=== PATIENT | male | born 2000 | race Caucasian/White ===

== ENCOUNTER 2024-11-25 22:20 | Observation (INO) | payer OTHER ==
[2024-11-25] MEDS ORDERED: ACETAMINOPHEN 325 MG TABLET (FP) ONE (23:12)
[2024-11-25] MEDS ORDERED: KETOROLAC TROMETHAMINE 15 MG/ML VIAL ONE (23:12)
[2024-11-25] MEDS: ACETAMINOPHEN 325 MG TABLET (FP) PO ONE (23:16)
[2024-11-25] MEDS: KETOROLAC TROMETHAMINE 15 MG/ML VIAL IM ONE (23:16)
[2024-11-26 01:04] LABS: ABSOLUTE IMMATURE GRANULOCYTES 0.06 x10^3/uL (0.0-0.031); BASOPHILS # 0.07 x10^3/uL (0.01-0.08); EOSINOPHIL % 0.1 % (0.8-7.0); EOSINOPHILS # 0.01 x10^3/uL (0.04-0.54); MCHC 34.4 g/dl (32.3-36.5); MEAN CELL VOLUME 87.1 fl (79.0-92.2); MEAN PLT VOLUME 9.8 fl (9.4-12.4); MONOCYTE # 0.58 x10^3/uL (0.30-0.82); MONOCYTE % 3.4 % (5.3-12.2); RDW 12.9 % (11.9-15.3)
[2024-11-26 01:17] LABS: ACTIVATED PTT 25.1 SECONDS (25.2-36.5)
[2024-11-26 01:18] LABS: INR 1.16 (0.83-1.09); PROTHROMBIN TIME (PATIENT) 12.8 SEC (9.7-13.0)
[2024-11-26 01:36] LABS: CO2 26.0 mmol/L (21-32); GLUCOSE,RANDOM 94.0 mg/dL (74-106)
[2024-11-26 01:39] LABS: CREATININE 1.2 mg/dL (0.55-1.3); SGOT/AST 25.0 U/L (15-37); SGPT/ALT 34.0 U/L (13-61)
[2024-11-26 01:40] LABS: TOT PROT 8.0 g/dl (6.4-8.2)
[2024-11-26 01:42] LABS: ALK PHOS 82.0 U/L (45-117)
[2024-11-26] MEDS ORDERED: DIPHTH,PERTUSS(ACELL),TET 0.5 ML DISP.SYRIN IM ONE (02:16)
[2024-11-26] MEDS: DIPHTH,PERTUSS(ACELL),TET 0.5 ML DISP.SYRIN IM ONE (02:20)
[2024-11-26] MEDS ORDERED: ACETAMINOPHEN 325 MG TABLET (FP) PO PRN (03:06)
[2024-11-26] MEDS ORDERED: KETOROLAC TROMETHAMINE 15 MG/ML VIAL ONE (07:25)
[2024-11-26] MEDS: KETOROLAC TROMETHAMINE 15 MG/ML VIAL IVPUSH PRN (07:29)
[2024-11-26 09:31] LABS: ABSOLUTE IMMATURE GRANULOCYTES 0.04 x10^3/uL (0.0-0.031); BASOPHILS # 0.03 x10^3/uL (0.01-0.08); EOSINOPHIL % 0.4 % (0.8-7.0); EOSINOPHILS # 0.04 x10^3/uL (0.04-0.54); MCHC 34.3 g/dl (32.3-36.5); MEAN CELL VOLUME 87.5 fl (79.0-92.2); MEAN PLT VOLUME 10.2 fl (9.4-12.4); MONOCYTE # 0.56 x10^3/uL (0.30-0.82); MONOCYTE % 5.7 % (5.3-12.2); RDW 13.0 % (11.9-15.3)
[2024-11-26] MEDS ORDERED: ENOXAPARIN NA (PORCINE) 40 MG/0.4 ML DISP.SYRIN SQ ONE (09:33)
[2024-11-26] MEDS: ENOXAPARIN NA (PORCINE) 40 MG/0.4 ML DISP.SYRIN SQ SCH (09:37)
[2024-11-26 10:16] LABS: CO2 26.0 mmol/L (21-32); GLUCOSE,RANDOM 163.0 mg/dL (74-106)
[2024-11-26 10:19] LABS: CREATININE 1.1 mg/dL (0.55-1.3); SGOT/AST 23.0 U/L (15-37); SGPT/ALT 34.0 U/L (13-61)
[2024-11-26 10:21] LABS: TOT PROT 7.8 g/dl (6.4-8.2)
[2024-11-26 10:22] LABS: ALK PHOS 84.0 U/L (45-117)
[2024-11-26 11:40] VITALS: BP 127/65; PULSE 56; RESP 18; TEMP 98.1
== END 2024-11-26 17:52 | disposition home or self-care (01) ==
LOC: JER 22:20 → JERBED 11-26 00:44 → J6S 11-26 11:21
PROVIDERS: ADMIT Hospitalist; ATTEND Internal Medicine
PROC: 3E0234Z Introduction of Serum, Toxoid and Vaccine into Muscle, Percutaneous Approach (ICD-10-PCS; principal; 2024-11-26)
PROC: 3E023GC Introduction of Other Therapeutic Substance into Muscle, Percutaneous Approach (ICD-10-PCS; 2024-11-26)
PROC: 3E0233Z Introduction of Anti-inflammatory into Muscle, Percutaneous Approach (ICD-10-PCS; 2024-11-26)
PROC: 3E0333Z Introduction of Anti-inflammatory into Peripheral Vein, Percutaneous Approach (ICD-10-PCS; 2024-11-26)
DX: S42.032A Displaced fracture of lateral end of left clavicle, initial encounter for closed fracture (principal); W21.02XA Struck by soccer ball, initial encounter; Y93.66 Activity, soccer; Y92.322 Soccer field as the place of occurrence of the external cause; Z23 Encounter for immunization; Z72.0 Tobacco use
CPT/HCPCS: 36415; 71045-TC-FY; 73000-TC-LT-FY; 73030-TC-LT-FY; 80053; 82248; 83735; 84100; 85025; 85610; 85730; 86850; 86900; 86901; 90471; 90715; 96372; 96374; 96375; 99285-25; G0378